=== PATIENT | female | born 1980 | race Caucasian/White ===

== ENCOUNTER 2018-03-14 09:54 | Emergency (ER) | payer OTHER ==
[~2018-03-14] VITALS: Ht 165.1 cm; Wt 83.9 kg
[~2018-03-14 09:54] MED LIST: Bactrim Ds Tab1 EACH PO; HYDACE5 PO; NAPR500 PO; Norco 5-325 Ta1 EACH PO; PRED10 PO
== END 2018-03-14 11:34 | disposition home or self-care (01) ==
LOC: ER 09:54
DX: S61.012A Laceration without foreign body of left thumb without damage to nail, initial encounter (principal); F17.200 Nicotine dependence, unspecified, uncomplicated; Z88.8 Allergy status to other drugs, medicaments and biological substances; W26.0XXA Contact with knife, initial encounter
CPT/HCPCS: 12001; 99282-25

== ENCOUNTER → 2021-04-12 | Outpatient (CLI) | payer OTHER | END | disposition home or self-care (01) | LOC: LAB SHORT 17:30 | DX: R35.0 Frequency of micturition (principal) | CPT/HCPCS: 87086 ==

== ENCOUNTER → 2021-04-17 | Outpatient (CLI) | payer OTHER | LOC: LAB SHORT 17:11 | DX: N30.01 Acute cystitis with hematuria (principal) | CPT/HCPCS: 87086 ==